=== PATIENT | female | born 1995 | race Native Hawaiian/Other Pacific Islander ===

== ENCOUNTER 2018-03-30 21:13 | Emergency (ER) | payer OTHER, BC ==
[2018-03-31] MEDS ORDERED: IBUPROFEN 600 MG TABLET PO ONE (00:05)
[2018-03-31] MEDS ORDERED: METHOCARBAMOL 500 MG TABLET PO ONE (00:05)
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
[2018-03-31 00:20] VITALS: BP 134/78
== END 2018-03-31 00:19 | disposition home or self-care (01) ==
LOC: ER 21:13
DX: S16.1XXA Strain of muscle, fascia and tendon at neck level, initial encounter (principal); V43.52XA Car driver injured in collision with other type car in traffic accident, initial encounter
CPT/HCPCS: 99283